=== PATIENT | female | born 1985 | race American Indian/Alaskan Native ===

== ENCOUNTER 2018-10-06 10:04 | Day surgery (SDC) | payer BC ==
[2018-10-02 17:19] VITALS: BMI 32.8
[2018-10-06] MEDS ORDERED: Lactated Ringer's 1,000 ML IV ONE ×2 (11:04→14:45)
[2018-10-06 11:14] LABS: EOS # 0.3 K/uL (0.0-0.7); EOS % 5.9 % (0.0-4.0); HEMOGLOBIN 13.7 g/dL (12.0-16.0); LYMPH # 2.1 K/uL (1.0-4.3); LYMPH % 43.4 % (20.0-40.0); MEAN CELL VOLUME 95.5 fl (81.0-99.0); MEAN CORPUSCULAR HEMOGLOBIN 33.8 pg (27.0-31.0); MEAN CORPUSCULAR HGB CONC 35.4 g/dL (33.0-37.0); MEAN PLATELET VOLUME 7.4 fl (7.2-11.7); MONO # 0.4 K/uL (0.0-0.8); MONO % 8.9 % (0.0-10.0); NEUT # 1.9 K/uL (1.8-7.0); NEUT % 40.8 % (50.0-75.0); NRBC % 0.3 % (0.0-0.0); RBC 4.04 Mil/uL (3.80-5.20); RED CELL DISTRIBUTION WIDTH 12.1 % (11.5-14.5); WHITE BLOOD COUNT 4.7 K/uL (4.8-10.8)
[2018-10-06] MEDS ORDERED: Midazolam 2 MG/2 ML VIAL ONE (11:22)
[2018-10-06] MEDS ORDERED: Succinylcholine Chloride 20 mg/ml Syr (5 ml) IV ONE (11:22)
[2018-10-06] MEDS ORDERED: Propofol 10 mg/ml Inj (20 ML) ONE (11:22)
[2018-10-06] MEDS ORDERED: Lidocaine 4% (Laryng-O-Jet) Kit MM ONE (11:22)
[2018-10-06] MEDS ORDERED: Rocuronium 10 mg/ml (5 ml) ONE (11:22)
--- NOTE | 2018-10-06 11:48 | CP.SDSHP ---
Same Day Surgery H & P - History Proposed Procedure: laparoscopic tubal ligation Pre-Op Diagnosis: sterilization procedure - Allergies Allergies: Allergies No Known Allergies Allergy (Verified 10/06/18 10:24) - Physical Exam Vital Signs: Vital Signs 10/06/18 10/06/18 10/06/18 10:41 11:01 11:30 Temperature 98.1 F 98.1 F Pulse Rate 66 66 62 Respiratory 18 18 18 Rate Blood Pressure 155/96 H 155/96 H 146/93 H Neuro: WNL Heart: WNL Lungs: WNL GI: WNL - {Optional Preform as Required} Breast: WNL Abdomen: WNL Rectal: WNL Integument: WNL VAT TENDER: WNL - Impression Pt. Evaluated Today:Candidate for Anesthesia & Procedure: Yes - Date & Time Date: 10/06/18 Time: 11:48 Short Stay Discharge - Short Stay Discharge Admitting Diagnosis/Reason for Visit: Z30.2 Disposition: HOME/ ROUTINE Referrals: FAMILY PROVIDER,NO [Primary Care Provider] -
[2018-10-06] MEDS ORDERED: Dexamethasone 4 mg/1 ml ONE (12:30)
[2018-10-06] MEDS ORDERED: Neostigmine 1:1000 (1 mg/ml) Inj ONE (12:57)
[2018-10-06] MEDS ORDERED: Oxycodone/Acetaminophen 5/325 mg Tab PO PRN (13:11)
[2018-10-06] MEDS ORDERED: Lactated Ringer's 1,000 ML IV SCH ×2 (13:15→13:30)
[2018-10-06] MEDS ORDERED: HYDROmorphone 0.5 mg/0.5 ml ISec IVP PRN (13:18)
[2018-10-06 15:17] VITALS: O2SAT 100
[2018-10-06 16:13] VITALS: BP 132/89; PULSE 58; RESP 18; TEMP 97.6
--- NOTE | 2018-10-09 22:59 | OP ---
PROCEDURE DATE: 10/06/2018 SURGEON: Jenn Bateman MD HEAT TREAT WORKER: Dr. Bell Bateman PREOPERATIVE DIAGNOSES: Multiparity, desires permanent sterilization. POSTOPERATIVE DIAGNOSES: Multiparity, desires permanent sterilization. PROCEDURE: Laparoscopic lateral tubal ligation. ANESTHESIA: General. ANESTHESIA ADMINISTERED BY: Dr. Ewing. ESTIMATED BLOOD LOSS: Minimal. INTRAVENOUS FLUIDS: 900 mL. URINE OUTPUT: 50 mL of clear urine. SPECIMEN: None. CONDITION: Stable. COMPLICATIONS: None. FINDINGS: Normal uterus, tubes and ovaries. INDICATIONS: This is a 33-year-old G4, P3 who desired permanent sterilization. The patient was advised risks and benefits in office as well as in preop area, understanding that tubal ligation is a permanent sterilization procedure. The patient was also advised other contraceptive options as well as male vasectomy. The patient verbalized understanding of all risks and benefits and agreed to proceeding with the procedure. There is also possibility of the procedure will fail which would result in a future or ectopic . The patient verbalized understanding and signed informed consent. DESCRIPTION OF PROCEDURE: The patient was taken to the OR. IV fluids were running. SCDs were placed bilaterally. General anesthesia was obtained without difficulty. The patient was placed in a dorsal lithotomy position with candy-cane stirrups. Examination under anesthesia revealed a normal-sized anteverted uterus. The patient was prepped and draped in a normal sterile fashion. The bladder was emptied with a catheter. A weighted speculum was placed in the posterior fornix of the vagina, and the anterior lip of the cervix was grasped with a single-tooth tenaculum. A Hawk manipulator was inserted successfully, and the single-tooth tenaculum was removed. Two towel clamps were applied to the periumbilical skin for manual elevation of the abdomen. A vertical skin incision was made in the umbilical fold. A Veress needle was introduced into the peritoneum cavity at a straight angle without difficulty. A saline drop test was performed to validate the intraperitoneal placement. The pneumoperitoneum was established with CO2 gas with a pressure of 15 MHz. A 10-mm scope right angle was inserted into the abdomen. Intra-abdominal placement was confirmed with the laparoscope. An intra-abdominal survey reveals normal-appearing tubes, ovaries and uterus. Trendelenburg position was obtained to facilitate moving the bowel and the omentum out of the pelvis. The uterus was elevated from the pelvis using the Hawk manipulator. The exit portion of the right fallopian tube was grasped with the Clippinger and elevated away from the surrounding structures. A complete fulguration was seen by the sensation of bubbling at the site of coagulation. Two additional coagulations of continuous areas were performed, a total of 3 cm of fallopian tube burnt. The left fallopian tube was fulgurated in a similar fashion. No bleeding was noted at either fulguration site. The patient tolerated the procedure well. All instruments were removed from the abdomen and vagina. All counts were correct x2. The umbilicus was closed with a 0 Vicryl stitch. The patient was taken to recovery room in a stable condition. There were no other complications. The patient was given instructions to follow up in the office in two weeks for postop check. Jenn Bateman MD
== END 2018-10-06 16:15 | disposition home or self-care (01) ==
LOC: H.OPSURG 10:04
PROVIDERS: ATTEND Obstetrics & Gynecology
DX: Z30.2 Encounter for sterilization (principal)
CPT/HCPCS: 36415; 58670; 85025; J1100; J1885; J2001; J2250; J2405; J2704; J2710; J3010; J7030; J7120